=== PATIENT | female | born 1960 | race Caucasian/White ===

== ENCOUNTER 2017-06-12 07:58 | Outpatient (CLI) | payer OTHER ==
--- NOTE | 2017-06-12 09:43 | MMO ---
BILATERAL DIGITAL SCREENING MAMMOGRAMS: HISTORY: This 57-year-old female presents for digital screening mammography. COMPARISON: 02/15/16, 12/17/14, 11/13/13, 10/01/12, 07/13/11. This patient's mammogram is interpreted with the assistance of computer-aided detection. Scattered areas of fibroglandular density are noted in both breasts. There is stable parenchymal den sity asymmetry in the left breast. No direct or indirect evidence of malignancy. IMPRESSION: BI-RADS category 2, benign findings. Continued routine screening. POS: MARIBEL
== END 2017-06-12 07:59 | disposition home or self-care (01) ==
LOC: SCSMAMMO 07:58
PROVIDERS: ATTEND Student in an Organized Health Care Education/Training Program
DX: Z12.31 Encounter for screening mammogram for malignant neoplasm of breast (principal)
CPT/HCPCS: 77067; G0202

== ENCOUNTER 2018-07-17 15:28 | Outpatient (CLI) | payer OTHER ==
--- NOTE | 2018-07-17 15:56 | MMO ---
BILATERAL MAMMOGRAMS: DATE: 07/17/18 HISTORY: Screening mammography. COMPARISON: Multiple exams back to 11/13/13. FINDINGS: Scattered fibroglandular densities. No dominant mass or suspicious calcifications. The study was evaluated with the assistance of computer-aided detection. IMPRESSION: BIRADS 1: Negative Suggest routine follow-up. POS: RONIT
== END 2018-07-17 15:29 | disposition home or self-care (01) ==
LOC: SCSMAMMO 15:28
PROVIDERS: ATTEND Student in an Organized Health Care Education/Training Program
DX: Z12.31 Encounter for screening mammogram for malignant neoplasm of breast (principal)
CPT/HCPCS: 77067

== ENCOUNTER 2023-03-01 07:24 | Outpatient (CLI) | payer BC | END 2023-03-01 07:25 | disposition home or self-care (01) | LOC: MRI 07:24 → SCSMRI 07:25 | PROVIDERS: ATTEND Internal Medicine Gastroenterology | DX: R10.11 Right upper quadrant pain (principal); Z90.49 Acquired absence of other specified parts of digestive tract; K44.9 Diaphragmatic hernia without obstruction or gangrene | CPT/HCPCS: 74183 ==

== ENCOUNTER 2023-03-04 08:20 | Outpatient (CLI) | payer BC | END 2023-03-04 08:21 | disposition home or self-care (01) | LOC: RAD 08:20 | PROVIDERS: ATTEND Internal Medicine Critical Care Medicine | DX: R06.00 Dyspnea, unspecified (principal) | CPT/HCPCS: 71046 ==